=== PATIENT | female | born 1945 | race Caucasian/White ===

== ENCOUNTER → 2017-05-17 | Outpatient (CLI) | payer OTHER, MEDICARE ==
[~2017-05-17] MED LIST: BYSTOLIC5 MG PO; GLUCOPHAGE1000 MG PO; GLUCOTROL5 MG PO; HYZAAR 100-21 TABLET PO; IMDUR60 MG PO; LIPITOR40 MG PO; NITROSTAT0.4 MG SL; NORVASC10 MG PO; PLAVIX75 MG PO; XALATAN2.5 ML BOTH EYES
[2017-05-17 09:23] LABS: GFR ESTIMATE (CALCULATED) > 59 mL/min/
[2017-05-17 09:24] LABS: UREA NITROGEN (BUN) 21 mg/dL (9-23)
== END | disposition home or self-care (01) ==
LOC: RAD 08:08
PROVIDERS: Internal Medicine Cardiovascular Disease
DX: I65.23 Occlusion and stenosis of bilateral carotid arteries (principal); I65.02 Occlusion and stenosis of left vertebral artery; R93.8 Abnormal findings on diagnostic imaging of other specified body structures
CPT/HCPCS: 36415; 70498; 82565; 84520

== ENCOUNTER 2017-07-06 20:54 | Inpatient (IN) | payer OTHER, MEDICARE ==
[~2017-07-06] VITALS: Ht 149.9 cm; Wt 89.7 kg
[~2017-07-06 20:54] MED LIST changes: +AMARYL2 MG PO; +APRESOLINE50 MG PO; +BENICAR20 MG PO; +ECOTRIN325 MG PO; +JANUVIA100 MG PO; +LOPRESSOR25 MG PO; +VITAMIN D31000 UNIT PO
[2017-07-07] VITALS (9 sets, daily range): BP systolic 111–161; BP diastolic 45–74
[2017-07-07 12:03] LABS: POINT-OF-CARE METER ID UU14174212
[2017-07-07 15:33] LABS: POINT-OF-CARE METER ID UU13113675; POINT-OF-CARE USER ID ADMKMM76
[2017-07-07 20:21] LABS: METH RESISTANT S AUREUS PCR NEGATIVE (NEGATIVE)
[2017-07-07 20:26] LABS: PROBE CHECK PASS; SPECIMEN PROCESSING CONTROL PASS
[2017-07-07 22:15] LABS: POINT-OF-CARE METER ID UU14208751
[2017-07-08] VITALS: BP 151/53
[2017-07-08 01:00] VITALS: BP 151/53
[2017-07-08 04:00] VITALS: BP 153/54
[2017-07-08 07:51] LABS: POINT-OF-CARE METER ID UU14174217
[2017-07-08 08:00] VITALS: BP 158/56
[2017-07-08] MEDS ORDERED: HYDROCODON-ACE1 EAC7 PO (08:49)
== END 2017-07-08 10:57 | disposition home or self-care (01) | DRG 39 ==
LOC: ENRESERV 20:54 → 2SOUTH 07-07 08:54 → ENRESERV 07-07 16:04 → 4WEST 07-07 17:26
PROVIDERS: Surgery
DX: I65.22 Occlusion and stenosis of left carotid artery (principal); I10 Essential (primary) hypertension; E11.9 Type 2 diabetes mellitus without complications; I25.10 Atherosclerotic heart disease of native coronary artery without angina pectoris; E78.00 Pure hypercholesterolemia, unspecified; Z79.82 Long term (current) use of aspirin; Z95.1 Presence of aortocoronary bypass graft; Z95.5 Presence of coronary angioplasty implant and graft
CPT/HCPCS: 82948; 87641; 93005; C1768; J0131; J0690; J1170; J1644; J1650; J1815; J2405; J2720; J2795; J3010; J7120